=== PATIENT | female | born 1965 | race Caucasian/White ===

== ENCOUNTER 2019-10-21 10:22 | Emergency (ER) | payer SELFPAY ==
[~2019-10-21] VITALS: Ht 157.5 cm; Wt 49.9 kg
--- NOTE | 2019-10-21 10:30 | NUR ---
Pt bib daughter, c/o r foot pain s/p fall, -ko. Pt aaox4, vss, breathing even and unlabored on room air w/ nad. Pt connected to the monitor
[2019-10-21] MEDS ORDERED: HYDROCODONE/APAP 5/325MG 1 EACH TABLET ONE (10:56)
[2019-10-21] MEDS ORDERED: HYDROCODONE/APAP 5/325MG 1 EACH TABLET PO ONE (11:00)
[2019-10-21 12:20] VITALS: BP 124/78
--- NOTE | 2019-10-21 12:20 | NUR ---
Patient discharged to home in stable condition. Written and verbal after care instructions given. Patient verbalizes understanding of instruction.
== END 2019-10-21 12:21 | disposition home or self-care (01) ==
LOC: ER 10:22
DX: S93.491A Sprain of other ligament of right ankle, initial encounter (principal); X50.1XXA Overexertion from prolonged static or awkward postures, initial encounter; Y93.89 Activity, other specified; Y92.89 Other specified places as the place of occurrence of the external cause; Y99.8 Other external cause status
CPT/HCPCS: 73590-TC; 73610-TC; 73620-TC